=== PATIENT | male | born 1995 ===

== ENCOUNTER → 2025-03-20 | Outpatient (REF) | payer OTHER ==
[2025-03-20 12:30] LABS: SEMEN APPEARANCE OPAQUE (OPAQUE); SEMEN VISCOSITY LIQUID (LIQUID); SEMEN VOLUME 3.7 ml (2.0-5.0); SPERM CONCENTRATION 70.1 M/ml (>=15.0); WBC CONCENTRATION <=1 M/ml (<=1 M/ml)
[2025-03-20 12:31] LABS: TOTAL PROGRESSIVE SPERM 130.2 M/Ejac.
== END ==
LOC: M LAB REF 12:22
PROVIDERS: ATTEND General Practice
DX: N46.8 Other male infertility (principal)